=== PATIENT | female | born 1990 | race Caucasian/White ===

== ENCOUNTER 2019-03-31 09:24 | Day surgery (SDC) | payer OTHER ==
[~2019-03-31] VITALS: Ht 157.5 cm; Wt 61.1 kg
[~2019-03-31 09:24] MED LIST: AMOX500C PO; LR 1,000 ML IV ONE
[2019-03-31] MEDS ORDERED: fentaNYL 100 MCG/2 ML INJECTION (J3010) As Ordered ONE (12:05)
[2019-03-31] MEDS ORDERED: LIDOCAINE 2% INJ 100 MG/5 ML SDV (FOR ANES.) As Ordered ONE (12:05)
[2019-03-31] MEDS ORDERED: propofoL 200 MG/20 ML VIAL As Ordered ONE (12:05)
[2019-03-31] MEDS ORDERED: MIDAZOLAM INJ 2 MG/2 ML VIAL (J2250) As Ordered ONE (12:05)
[2019-03-31] MEDS ORDERED: ONDANSETRON 4MG/2ML VIAL (J2405) As Ordered ONE (12:06)
[2019-03-31] MEDS ORDERED: dexameTHASONE 4 MG/ML 1ML VIAL (J1100) As Ordered ONE (12:06)
[2019-03-31] MEDS ORDERED: LIDOCAINE 2% W/ EPINEPHRINE 1.7 ML DENTAL INJ As Ordered ONE ×3 (12:57→13:19)
[2019-03-31] MEDS ORDERED: SUCCINYLCHOLINE 100 MG/5 ML SYRINGE (J0330) As Ordered ONE (13:20)
[2019-03-31] MEDS ORDERED: ACETAMINOPHEN 1000MG 100ML IV BTL (OFIRMEV) (J0131 PER 10MG) As Ordered ONE (13:22)
[2019-03-31] MEDS ORDERED: ROCURONIUM BROMIDE 50 MG/5 ML VIAL As Ordered ONE (13:25)
[2019-03-31] MEDS ORDERED: ESMOLOL INJ 100MG/10ML VIAL As Ordered ONE (13:25)
[2019-03-31] MEDS ORDERED: KETOROLAC 60 MG/2 ML VIAL (J1885) As Ordered ONE (13:29)
[2019-03-31] MEDS ORDERED: SUGAMMADEX SODIUM 500 MG/5 ML VIAL (BRIDION) As Ordered ONE (13:35)
[2019-03-31] MEDS ORDERED: LR 1,000 ML IV SCH (14:15)
[2019-03-31] MEDS ORDERED: oxyCODONE 5MG TAB PO PRN (14:15)
[2019-03-31] MEDS ORDERED: ONDANSETRON 4MG/2ML VIAL (J2405) IV PRN (14:15)
--- NOTE | 2019-03-31 14:26 | RO ---
DATE OF PROCEDURE: 03/31/2019 SURGEON: Segun Bailey DMD, MD PREOPERATIVE DIAGNOSES: 1. Hopeless tooth #31. 2. Inability to achieve local anesthesia. POSTOPERATIVE DIAGNOSIS: Status post the above. PROCEDURE PERFORMED: Surgical extraction of tooth #31. ANESTHESIA USED: General endotracheal anesthesia via oral KI. SPECIMEN: Tooth for gross only. INDICATIONS FOR SURGERY: Nelida is a pleasant 28-year-old female who was referred to my office for evaluation for extraction of decayed and symptomatic tooth #31. Clinical and radiographic examination reveal gross caries tooth #31. Past medical history and medications were reviewed. Healthy ASA2 patient on no medications, half a pack per day smoking with NO KNOWN DRUG ALLERGIES. The patient was set up to have procedure performed with nitrous oxide and local in my office due to her severe dental anxiety. We did attempt to have insurance approve deep sedation in the office; however, that was denied. Local anesthesia nitrous was attempted to have the procedure performed under and that failed as I was unable to achieve total anesthesia of the options to have deep sedation in the office, however the insurance does not cover it versus a trip to the operating room under general anesthesia where the insurance did approve and she elected to have the latter due to financial reasons. A complete history and physical and consent form were obtained and are in the patient's chart. DESCRIPTION OF PROCEDURE: The patient presented to preop holding area. Any last minute questions were addressed. History and physical and the consent were updated. At that point the patient was taken back to the operating room. She was laid supine on the operating room table. Ulnar nerve protectors were placed. Noninvasive cardiac monitors were applied. At that point the patient underwent general anesthesia and was intubated with an oral KI. She was then prepped and draped in the usual sterile fashion. A time-out procedure was performed to identify the patient, the procedure and any other precautions. A moist throat pack was inserted in the patient's oropharynx followed by the administration of three carpules of 2% lidocaine with 1:100,000 epinephrine as local infiltration of blocks. A full-thickness flap was released at the sulcus of #31, extended distally into the sulcus of #30 and then proximally with a hockey stick buccal extension. A small amount of buccal bone was removed from site #31. The tooth was then luxated and delivered. Socket was curetted and irrigated and inspected. Lingual cortex was intact. Inferior alveolar nerve was not noted. Flap was then closed with #3-0 chromic sutures. Hemostasis was easily achieved. At this point oral cavity was irrigated and suctioned the throat pack was removed. The patient was awakened from general anesthesia and taken back to the postanesthesia care unit (PACU) under the care of the anesthesiologist and myself. COMPLICATIONS: None to mention at the time of surgery. ESTIMATED BLOOD LOSS: 5 mL. DRAINS: There were no drains placed.
[2019-03-31 15:00] VITALS: BP 99/53
== END 2019-03-31 15:20 | disposition home or self-care (01) ==
LOC: M SDC 09:24
PROVIDERS: ATTEND Dentist
DX: K02.9 Dental caries, unspecified (principal); Z86.19 Personal history of other infectious and parasitic diseases; F17.210 Nicotine dependence, cigarettes, uncomplicated
CPT/HCPCS: 81025; 88300; D7210; D9223; J0131; J0330; J1100; J1885; J2250; J2405; J3010

== ENCOUNTER → 2021-01-18 | Outpatient (CLI) | payer OTHER ==
[~2021-01-18] MED LIST changes: -LR 1,000 ML IV ONE
[2021-01-18 15:07] LABS: HEPATITIS B SURFACE ANTIBODY NEGATIVE (POSITIVE); HEPATITIS B SURFACE ANTIGEN NEGATIVE (NEGATIVE); HIV 1&2 SCREEN CENTAUR NEGATIVE (NEGATIVE)
[2021-01-25 14:11] LABS: HEPATITIS A IgG TOTAL Negative (Negative); HEPATITIS B CORE ANTIBODY IGG Negative (Negative)
== END ==
LOC: M PLALAB 11:33
PROVIDERS: ATTEND Internal Medicine Infectious Disease
DX: B18.2 Chronic viral hepatitis C (principal)

== ENCOUNTER → 2021-01-31 | Outpatient (CLI) | payer OTHER ==
[2021-02-03 20:10] LABS: HEPATITIS C VIRUS GENOTYPE 3 (.)
== END ==
LOC: M PLALAB 11:46
PROVIDERS: ATTEND Internal Medicine Infectious Disease
DX: B18.2 Chronic viral hepatitis C (principal)

== ENCOUNTER 2023-01-23 11:14 | Emergency (ER) | payer OTHER ==
[~2023-01-23] VITALS: Ht 157.5 cm; Wt 48.6 kg
[2023-01-23 11:50] VITALS: BP 116/70; TEMP 98.1; O2SAT 98
[2023-01-23 12:27] LABS: HEMATOCRIT 41.2 % (36.0-47.0); HEMOGLOBIN 13.7 g/dl (12.0-15.5); MEAN CORPUSCULAR HEMOGLOBIN 29.5 pg (27.0-33.0); MEAN CORPUSCULAR HGB CONC 33.3 g/dl (32.0-36.5); MEAN CORPUSCULAR VOLUME 88.6 fl (80.0-96.0); PLATELET COUNT, AUTOMATED 268 10^3/uL (150-450); RED BLOOD COUNT 4.65 10^6/uL (4.00-5.40); WHITE BLOOD COUNT 6.9 10^3/uL (4.0-10.0)
[2023-01-23 12:31] LABS: AMPHETAMINES LEVEL URINE NEGATIVE (NEGATIVE); BARBITURATES URINE NEGATIVE (NEGATIVE); BENZODIAZEPINES URINE NEGATIVE (NEGATIVE); PHENCYCLIDINE URINE NEGATIVE (NEGATIVE)
[2023-01-23 12:32] LABS: ETHYL ALCOHOL (ETHANOL) < 0.003 % (0.000-0.010); SALICYLATE LEVEL < 3.0 MG/DL (<30)
[2023-01-23 12:34] LABS: ALBUMIN 3.7 G/DL (3.2-5.2); ALKALINE PHOSPHATASE 56 U/L (46-116); ALT/SGPT 11 U/L (7.0-40); AST/SGOT 9 U/L (<34); BILIRUBIN,DIRECT 0.1 MG/DL (<0.4); BILIRUBIN,TOTAL 0.4 MG/DL (0.3-1.2); BLOOD UREA NITROGEN 8 MG/DL (9-23); CALCIUM LEVEL 9.1 MG/DL (8.5-10.1); CARBON DIOXIDE LEVEL 29 MMOL/L (20-31); CHLORIDE LEVEL 102 MMOL/L (98-107); CREATININE FOR GFR 0.48 MG/DL (0.55-1.30); GLOMERULAR FILTRATION RATE > 60.0 (>60); GLUCOSE, FASTING 88 MG/DL (60-100); SODIUM LEVEL 139 MMOL/L (136-145); TOTAL PROTEIN 7.3 G/DL (5.7-8.2)
[2023-01-23 12:35] LABS: THYROID STIMULATING HORMONE 1.383 uIU/ML (0.55-4.78)
[2023-01-23 12:37] LABS: CANNABINOIDS URINE POSITIVE (NEGATIVE); COCAINE METABOLITE URINE POSITIVE (NEGATIVE); METHADONE URINE POSITIVE (NEGATIVE); OPIATES URINE POSITIVE (NEGATIVE)
[2023-01-23 12:52] LABS: HCG, SERUM QUALITATIVE NEGATIVE (NEGATIVE)
[2023-01-23] MEDS ORDERED: MED REC IN PROGRESS XX SCH (12:55)
[2023-01-23] MEDS ORDERED: METH10CO PO (12:59)
[2023-01-23] MEDS ORDERED: HOME MED LIST COMPLETE! XX SCH (13:15)
== END 2023-01-23 16:45 | disposition home or self-care (01) ==
LOC: M ED 11:14 → EDBD 11:14 → M ED 16:45
DX: F43.0 Acute stress reaction (principal); F19.10 Other psychoactive substance abuse, uncomplicated; R45.851 Suicidal ideations; F41.9 Anxiety disorder, unspecified; F32.A Depression, unspecified; F17.200 Nicotine dependence, unspecified, uncomplicated; Z79.899 Other long term (current) drug therapy

== ENCOUNTER → 2023-09-04 | Outpatient (REF) | payer OTHER ==
[~2023-09-04] MED LIST changes: +METH10CO PO
== END ==
LOC: M LAB REF 17:15
PROVIDERS: ATTEND Internal Medicine Nephrology
DX: N39.0 Urinary tract infection, site not specified (principal)